=== PATIENT | female | born 1940 | race Caucasian/White ===

== ENCOUNTER → 2017-12-08 | Outpatient (CLI) | payer MEDICARE ==
[2016-07-01 14:49] VITALS: BMI 25.2
[~2017-12-08] MED LIST: ALEN70SO4 PO; CALC500T6 PO; DOC100 PO; ENO40I SQ; FISH OIL 1,2001 CAP PO; GLUC100026 PO; LEVO25TA56 PO; MELA1TAB23 PO; MELO-149 PO; MULT1CAP59 PO; OMEG-23 PO; OMEG-36 PO; OXYC-865 PO; PARO40TA86 PO; PER PO; RIV10 PO; SIMV-42 PO; UBID200C21 PO; [UNRECOGNIZED DRUG - CODE] PO; [UNRECOGNIZED DRUG - CODE] PO
== END ==
LOC: AUD 10:00
PROVIDERS: ATTEND Family Medicine
DX: H91.90 Unspecified hearing loss, unspecified ear (principal)
CPT/HCPCS: 92552

== ENCOUNTER → 2018-03-21 | Outpatient (CLI) | payer MEDICARE ==
[2016-07-01 14:49] VITALS: BMI 25.2
--- NOTE | 2018-03-22 10:36 | RADIOLOGY IMAGING REPORT ---
FACILITY: [facility] - [place], [place] PATIENT NAME: ZANE FERNANDEZ : [id number] MR: [id number] V: [id number] EXAM DATE: [id number] ORDERING PHYSICIAN: CINDY JOYCE TECHNOLOGIST: Jacinda Burgos PROCEDURE:BILATERAL DIGITAL SCREENING MAMMOGRAM WITH CAD ASSISTED INTERPRETATION & 3D TOMOSYNTHESIS COMPARISON:Prior mammograms dated 03/10/17, 03/05/16, INDICATIONS:SCREENING FINDINGS: Mildly heterogeneous fibroglandular tissue is seen throughout the breasts. In the lateral portion of the Right breast there is a rounded nodular density that appears more prominent when compared with the prior study. This appears to be posterior to mid nipple line on the Right MLO view. Right breast Ultrasound is recommended. DIAGNOSTIC CATEGORY 0--INCOMPLETE: NEED ADDITIONAL IMAGING EVALUATION. RECOMMENDATIONS: ULTRASOUND: RIGHT BREAST. IMPRESSION: BIRADS 0: Incomplete, need additional imaging evaluation. Right breast Ultrasound recommended as described above. Dictated by: Ani Sargent M.D. on 03/21/2018 at 17:07 Transcribed by: GEOFF on 03/22/2018 at 8:08 Approved by: Ani Sargent M.D. on 03/22/2018 at 10:35 [facility]
== END ==
LOC: MAMO 02:01
PROVIDERS: ATTEND Family Medicine
DX: Z12.31 Encounter for screening mammogram for malignant neoplasm of breast (principal); R92.8 Other abnormal and inconclusive findings on diagnostic imaging of breast
CPT/HCPCS: 77063; 77067

== ENCOUNTER → 2018-03-30 | Outpatient (CLI) | payer MEDICARE ==
[2016-07-01 14:49] VITALS: BMI 25.2
--- NOTE | 2018-03-31 10:44 | RADIOLOGY IMAGING REPORT ---
FACILITY: PATIENT NAME: ZANE FERNANDEZ : [id number] MR: [id number] V: [id number] EXAM DATE: [id number] ORDERING PHYSICIAN: CINDY JOYCE TECHNOLOGIST: Javed Ag PROCEDURE:US RIGHT BREAST COMPARISON:Prior mammogram 03/21/18. INDICATIONS:FURTHER EVAL FINDINGS: There are 3 cysts identified in the 8:30-9 o'clock position of the Right breast ranging in size from 5.1mm to 6.9mm likely accounting for the recent mammographic findings. DIAGNOSTIC CATEGORY 2--BENIGN FINDING. RECOMMENDATIONS: ROUTINE MAMMOGRAM AND CLINICAL EVALUATION. IMPRESSION: BIRADS 2: Benign finding There are 3 cysts identified in the 8:30-9 o'clock position of the Right breast likely accounting for the recent mammographic findings. Dictated by: Ani Sargent M.D. on 03/30/2018 at 17:50 Transcribed by: STIVEN on 03/31/2018 at 9:04 Approved by: Ani Sargent M.D. on 03/31/2018 at 10:43 [facility]
== END ==
LOC: MAMO 02:23
PROVIDERS: ATTEND Family Medicine
DX: N60.01 Solitary cyst of right breast (principal)

== ENCOUNTER 2019-07-12 09:00 | Outpatient (RCR) | payer MEDICARE ==
[2016-07-01 14:49] VITALS: BMI 25.2
--- NOTE | 2019-06-09 15:04 | PT INITIAL EVALUATION ---
MEDICAL DIAGNOSIS: M54.5 LBP TREATMENT DIAGNOSIS: Same DATE OF ONSET: 05/26/19 SUBJECTIVE: Nubia Conti presents to PT for LBP after clearing tree limbs and litter after having a spruce tree removed at her home. She denies radicular symptoms. Oswestry Disability Index 38%. Nubia would like to return to cooking, walking without LBP. Currently she's walking short community distances, not longer, isn't doing laundry, stands 5-10 min. to cook, which is less than before her strain. Pain location is L-S junction and described as sharp grab, ache. Pain scale is 8 on a ten point pain scale. Pain is worse with lifting, transfers and better with walking, standing. REHAB PROBLEM LIST: Increased Pain, Decreased ROM, Impaired Transfers, Decreased Function, Mobility, Altered Gait PREVIOUS MEDICAL HISTORY: B ulnar nerve transplant and CTR, lumbar fusion x2, R TKA OCCUPATION: Retired, lives in a multi-level home with her . OBJECTIVE: Posture: Midline lumbar spine, iliac crests even. ROM: AROM lumbar spine flexion 75%, R lateral shift, less pain, extension 30%, midline spine, pain. Strength: Core strength 3+/5. Palpation: Tight, painful lumbar extensors, posterior hip muscle. Special Tests: DTR's Quads, Achilles 2/3. Negative SLR, B. Mobility: LBP with sit/stand, bed mobility. Gait: Nubia ambulates with reduced pelvic WS. ASSESSMENT: Nubia Conti presents with R L5/S1 lateral shift and soft tissue inflammation after repeated band/lift/pull. She had less LBP after manual therapy and Jay extension exercise. Short Term Goals/Patient's Goals One month: Nubia ambulates long community distances, stands 30 min. with laundry and cooking, denies LBP with these activities. PLAN: Patient to be seen for Manual Therapy, Strengthening/condition, Ice/Heat, Range of Motion, Spinal Stabilization, Stretching, Electrical Stim, Posture/Body mechanics, Home Exercise Program 2x/Week for 4 Weeks Thank you for this referral. If you have any questions, comments, or concerns about this report or plan, please contact me at . Dr. Eric ZIMMERMAN
--- NOTE | 2019-07-12 10:25 | PT PLAN OF CARE ---
Physician: Dr. Eric Head Patient is being seen: 2x/week Therapist: Amy Munson PT Medical Diagnosis: M54.5 LBP Treatment Diagnosis: Same Date of Onset: 05/26/19 Date of Initial Evaluation: 06/09/19 Date patient was last seen: 07/12/19 Number of treatments: 8 Number of cancellations/No shows: 0 INTERVENTIONS: Manual Therapy, Strengthening, Range of Motion, Spinal Stabilization, Stretching, Home Exercise Program GOALS/PATIENT'S GOAL: One month: Nubia ambulates long community distances, stands 30 min. with laundry and cooking, denies LBP with these activities. all met Patient Compliance: Excellent Prognosis: Excellent Reasons for discontinuing therapy: S: Nubia relates she has LBP with lifting, carrying tree branches for several hours, otherwise is pain free in the L-S region. She can stand as long as she likes without LBP. Oswestry Disability Index 2%. Posture: Midline lumbar spine, iliac crests even. ROM: AROM lumbar spine WNL all directions. Strength: Core strength 4/5. Special Tests: Negative SLR, B. Mobility: Independent, pain free L-S. A/P: Nubia Conti has improved ROM, strength to resolve LBP and improve function. I'll DC PT to [facility]. Thank you. ERASMO
== END 2019-07-12 14:13 | disposition home or self-care (01) ==
LOC: PT 09:00
PROVIDERS: ATTEND Family Medicine
DX: M54.5 Low back pain (principal); Z96.651 Presence of right artificial knee joint; Z98.1 Arthrodesis status
CPT/HCPCS: 97161